=== PATIENT | female | born 1960 | race Caucasian/White ===

== ENCOUNTER 2019-11-07 11:01 | Emergency (ER) | payer SELFPAY ==
[~2019-11-07] VITALS: Ht 152.4 cm; Wt 85.3 kg
--- OUTSIDE RECORDS SUMMARY | 2019-11-07 11:03 | XMS REPORT ---
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 Allergies, Adverse Reactions, Alerts This patient has no known allergies or adverse reactions. Medications This patient has no known medications. Encounters Start Date/Time End Date/Time Encounter Type Admission Type Attending [facility] Care Department Encounter ID 2019-12-03 00:00:00 2019-12-03 00:00:00 Outpatient [facility] [id number] 2019-12-03 00:00:00 2019-12-03 00:00:00 Outpatient [facility] [id number] 2019-11-20 00:00:00 2019-11-20 00:00:00 Outpatient [facility] [id number] 2019-11-09 00:00:00 2019-11-09 00:00:00 Outpatient [facility] [id number] 2019-10-28 09:14:02 2019-10-28 09:14:02 Outpatient [facility] [id number] 2019-10-21 00:00:00 2019-10-21 00:00:00 Outpatient [facility] [id number] 2019-10-14 09:48:27 2019-10-14 09:48:27 Outpatient [facility] [id number] 2019-10-02 08:52:05 2019-10-02 08:52:05 Outpatient [facility] [id number] 2019-09-21 08:24:59 2019-09-21 08:24:59 Outpatient [facility] [id number] 2019-09-16 09:53:15 2019-09-16 09:53:15 Outpatient [facility] [id number] 2019-09-03 09:01:23 2019-09-03 09:01:23 Outpatient [facility] [id number] 2019-08-19 09:10:32 2019-08-19 09:10:32 Outpatient [facility] [id number] 2019-08-19 09:08:28 2019-08-19 09:08:28 Outpatient [facility] [id number] 2019-08-17 11:03:27 2019-08-17 11:03:27 Outpatient [facility] [id number] 2019-08-13 09:32:26 2019-08-13 09:32:26 Outpatient [facility] [id number] 2019-08-13 00:00:00 2019-08-13 00:00:00 Outpatient [facility] [id number] 2019-07-22 10:28:25 2019-07-22 10:28:25 Outpatient [facility] [id number] 2019-07-20 09:09:10 2019-07-20 09:09:10 Outpatient [facility] [id number] 2019-07-14 10:25:44 2019-07-14 10:25:44 Outpatient [facility] [id number] 2019-06-26 09:02:31 2019-06-26 09:02:31 Outpatient [facility] [id number] 2019-06-25 09:27:31 2019-06-25 09:27:31 Outpatient [facility] [id number] 2019-06-25 08:04:00 2019-06-25 08:04:00 Outpatient [facility] [id number] 2019-06-25 00:00:00 2019-06-25 00:00:00 Outpatient [facility] [id number] 2019-06-24 10:08:56 2019-06-24 10:08:56 Outpatient [facility] [id number] 2019-06-19 08:57:44 2019-06-19 08:57:44 Outpatient [facility] [id number] 2019-06-18 00:00:00 2019-06-18 00:00:00 Outpatient [facility] [id number] 2019-06-03 11:08:34 2019-06-03 11:08:34 Outpatient [facility] [id number] 2019-06-03 10:24:05 2019-06-03 10:24:05 Outpatient [facility] [id number] 2019-06-03 00:00:00 2019-06-03 00:00:00 Outpatient [facility] [id number] 2019-05-25 10:38:14 2019-05-25 10:38:14 Outpatient [facility] [id number] 2019-05-25 10:34:01 2019-05-25 10:34:01 Outpatient [facility] [id number] 2019-05-25 00:00:00 2019-05-25 00:00:00 Outpatient [facility] [id number] 2019-05-18 00:00:00 2019-05-18 00:00:00 Outpatient [facility] [id number] 2019-04-23 09:34:13 2019-04-23 09:34:13 Outpatient [facility] [id number] 2019-04-16 16:03:10 2019-04-16 16:03:10 Outpatient [facility] [id number] 2019-04-16 00:00:00 2019-04-16 00:00:00 Outpatient [facility] [id number] 2019-03-27 10:44:22 2019-03-27 10:44:22 Outpatient [facility] [id number] 2019-03-19 08:19:26 2019-03-19 08:19:26 Outpatient [facility] [id number] 2019-03-19 08:17:16 2019-03-19 08:17:16 Outpatient [facility] [id number] 2019-02-27 11:04:09 2019-02-27 11:04:09 Outpatient [facility] [id number] 2019-02-27 10:35:12 2019-02-27 10:35:12 Outpatient [facility] [id number] 2019-02-27 00:00:00 2019-02-27 00:00:00 Outpatient [facility] [id number] 2019-02-23 11:04:22 2019-02-23 11:04:22 Outpatient [facility] [id number] 2019-02-05 02:11:56 2019-02-05 02:11:56 Emergency [facility] [id number] 2019-02-04 22:45:45 2019-02-04 22:45:45 Emergency [facility] [id number] 2019-02-04 11:34:36 2019-02-04 11:34:36 Emergency [facility] [id number] 2019-01-23 10:07:33 2019-01-23 10:07:33 Outpatient [facility] [id number] 2018-12-26 11:18:55 2018-12-26 11:18:55 Outpatient [facility] [id number] 2018-12-26 10:14:55 2018-12-26 10:14:55 Outpatient [facility] [id number] 2018-12-25 00:00:00 2018-12-25 00:00:00 Outpatient [facility] [id number] 2018-12-09 15:26:54 2018-12-09 15:26:54 Outpatient [facility] [id number] 2018-12-01 09:33:58 2018-12-01 09:33:58 Outpatient [facility] [id number] 2018-12-01 00:00:00 2018-12-01 00:00:00 Outpatient [facility] [id number] 2018-11-28 12:45:02 2018-11-28 12:45:02 Outpatient [facility] [id number] 2018-11-27 14:13:49 2018-11-27 14:13:49 Outpatient [facility] [id number] 2018-11-26 14:18:07 2018-11-26 14:18:07 Outpatient [facility] [id number] 2018-11-26 05:45:39 2018-11-26 05:45:39 Outpatient [facility] [id number] 2018-11-26 00:05:19 2018-11-26 00:05:19 Emergency [facility] [id number] 2018-11-25 23:40:04 2018-11-25 23:40:04 Emergency [facility] [id number] 2018-11-13 15:54:36 2018-11-13 15:54:36 Outpatient [facility] [id number] 2018-11-13 14:04:31 2018-11-13 14:04:31 Outpatient [facility] [id number] 2018-11-06 10:35:14 2018-11-06 10:35:14 Outpatient [facility] [id number] 2018-10-21 00:00:00 2018-10-21 00:00:00 Outpatient [facility] [id number] 2018-09-22 09:42:41 2018-09-22 09:42:41 Outpatient [facility] [id number] 2018-09-22 00:00:00 2018-09-22 00:00:00 Outpatient [facility] [id number] 2018-09-12 09:40:54 2018-09-12 09:40:54 Outpatient [facility] [id number] 2018-09-08 09:03:40 2018-09-08 09:03:40 Outpatient [facility] [id number] 2018-09-04 00:00:00 2018-09-04 00:00:00 Outpatient [facility] [id number] 2018-08-28 16:14:13 2018-08-28 16:14:13 Outpatient [facility] [id number] 2018-08-25 11:08:04 2018-08-25 11:08:04 Outpatient [facility] [id number] 2018-08-25 10:55:28 2018-08-25 10:55:28 Outpatient [facility] [id number] 2018-08-21 00:00:00 2018-08-21 00:00:00 Outpatient [facility] [id number] 2018-08-18 10:32:57 2018-08-18 10:32:57 Outpatient [facility] [id number] 2018-08-07 10:43:04 2018-08-07 10:43:04 Outpatient [facility] [id number] 2018-08-07 09:26:06 2018-08-07 09:26:06 Outpatient [facility] [id number] 2018-07-25 15:26:21 2018-07-25 15:26:21 Outpatient [facility] [id number] 2018-07-25 00:00:00 2018-07-25 00:00:00 Outpatient [facility] [id number] 2018-07-22 15:16:06 2018-07-22 15:16:06 Outpatient [facility] [id number] 2018-07-14 10:33:09 2018-07-14 10:33:09 Outpatient [facility] [id number] 2018-06-17 15:03:31 2018-06-17 15:03:31 Outpatient [facility] [id number] 2018-06-12 11:20:41 2018-06-12 11:20:41 Outpatient [facility] [id number] 2018-06-12 10:35:48 2018-06-12 10:35:48 Outpatient [facility] [id number] 2018-06-12 09:53:47 2018-06-12 09:53:47 Outpatient [facility] [id number] 2018-06-03 00:00:00 2018-06-03 00:00:00 Outpatient [facility] [id number] 2018-05-30 00:00:00 2018-05-30 00:00:00 Outpatient [facility] [id number] 2018-05-28 00:00:00 2018-05-28 00:00:00 Outpatient [facility] [id number] 2018-05-27 07:38:09 2018-05-27 07:38:09 Outpatient [facility] [id number] 2018-05-26 15:18:48 2018-05-26 15:18:48 Outpatient [facility] [id number] 2018-05-26 14:46:14 2018-05-26 14:46:14 Outpatient [facility] [id number] 2018-05-26 13:31:24 2018-05-26 13:31:24 Outpatient [facility] [id number] 2018-05-16 10:42:35 2018-05-16 10:42:35 Outpatient [facility] [id number] 2018-05-15 00:00:00 2018-05-15 00:00:00 Outpatient [facility] [id number] 2018-05-01 10:49:11 2018-05-01 10:49:11 Outpatient [facility] [id number] 2018-04-12 21:52:10 2018-04-12 21:52:10 Emergency [facility] [id number] 2018-04-12 20:17:34 2018-04-12 20:17:34 Emergency [facility] [id number] 2018-04-12 17:41:52 2018-04-12 17:41:52 Outpatient [facility] [id number] 2018-04-07 00:00:00 2018-04-07 00:00:00 Outpatient [facility] [id number] 2018-04-01 00:00:00 2018-04-01 00:00:00 Outpatient [facility] [id number] 2018-03-19 00:00:00 2018-03-19 00:00:00 Outpatient [facility] [id number] 2018-02-18 00:00:00 2018-02-18 00:00:00 Outpatient [facility] [id number] 2018-01-21 00:00:00 2018-01-21 00:00:00 Outpatient [facility] [id number] 2017-12-31 00:00:00 2017-12-31 00:00:00 Outpatient [facility] [id number] 2017-12-27 00:00:00 2017-12-27 00:00:00 Outpatient [facility] [id number] 2017-12-24 00:00:00 2017-12-24 00:00:00 Outpatient [facility] [id number] 2017-12-20 00:00:00 2017-12-20 00:00:00 Outpatient [facility] [id number] 2017-12-03 00:00:00 2017-12-03 00:00:00 Outpatient [facility] [id number] 2017-11-25 08:29:51 2017-11-25 08:29:51 Outpatient [facility] [id number] 2017-11-19 16:40:01 2017-11-19 16:40:01 Outpatient [facility] [id number] 2017-11-19 10:12:17 2017-11-19 10:12:17 Outpatient [facility] [id number] 2017-11-13 00:00:00 2017-11-13 00:00:00 Outpatient [facility] [id number] 2017-11-08 00:00:00 2017-11-08 00:00:00 Outpatient [facility] [id number] 2017-10-29 12:59:32 2017-10-29 12:59:32 Outpatient [facility] [id number] 2017-10-28 00:00:00 2017-10-28 00:00:00 Outpatient [facility] [id number] 2017-10-14 14:46:15 2017-10-14 14:46:15 Outpatient [facility] [id number] 2017-10-14 13:44:07 2017-10-14 13:44:07 Outpatient [facility] [id number] 2017-10-09 15:03:54 2017-10-09 15:03:54 Outpatient [facility] [id number] 2017-10-07 11:42:40 2017-10-07 11:42:40 Outpatient [facility] [id number] 2017-10-07 11:01:18 2017-10-07 11:01:18 Outpatient [facility] [id number] 2017-09-23 20:19:24 2017-09-23 20:19:24 Emergency [facility] [id number] 2017-09-23 13:16:38 2017-09-23 13:16:38 Emergency [facility] [id number] 2017-09-23 12:25:07 2017-09-23 12:25:07 Inpatient [facility] [id number] 2017-09-17 12:39:49 2017-09-17 12:39:49 Outpatient [facility] [id number] 2017-09-17 08:59:25 2017-09-17 08:59:25 Outpatient [facility] [id number] 2017-09-03 09:58:02 2017-09-03 09:58:02 Outpatient [facility] [id number] 2017-08-20 08:22:14 2017-08-20 08:22:14 Outpatient [facility] [id number] 2017-08-13 08:37:56 2017-08-13 08:37:56 Outpatient [facility] [id number] 2017-07-26 00:00:00 2017-07-26 00:00:00 Outpatient [facility] [id number] 2017-07-22 12:52:12 2017-07-22 12:52:12 Outpatient [facility] [id number] 2017-06-25 00:00:00 2017-06-25 00:00:00 Outpatient [facility] [id number] 2017-06-24 00:00:00 2017-06-24 00:00:00 Outpatient [facility] [id number] 2017-06-21 00:00:00 2017-06-21 00:00:00 Outpatient [facility] [id number] 2017-06-10 00:00:00 2017-06-10 00:00:00 Outpatient [facility] [id number] 2017-05-29 06:40:00 2017-05-29 06:40:00 Outpatient [facility] [id number] 2017-05-29 00:00:00 2017-05-29 00:00:00 Outpatient [facility] [id number] 2017-05-29 00:00:00 2017-05-29 00:00:00 Outpatient [facility] [id number] 2017-05-27 06:12:00 2017-05-27 06:12:00 Outpatient [facility] [id number] 2017-05-27 00:00:00 2017-05-27 00:00:00 Outpatient [facility] [id number] 2017-05-24 06:25:00 2017-05-24 06:25:00 Outpatient [facility] [id number] 2017-05-24 00:00:00 2017-05-24 00:00:00 Outpatient [facility] [id number] 2017-05-24 00:00:00 2017-05-24 00:00:00 Outpatient [facility] [id number] 2017-05-23 13:50:50 2017-05-23 13:50:50 Outpatient [facility] [id number] 2017-05-23 00:00:00 2017-05-23 00:00:00 Outpatient [facility] [id number] 2017-05-22 06:37:00 2017-05-22 06:37:00 Outpatient [facility] [id number] 2017-05-22 00:00:00 2017-05-22 00:00:00 Outpatient [facility] [id number] 2017-05-22 00:00:00 2017-05-22 00:00:00 Outpatient [facility] [id number] 2017-05-20 14:55:23 2017-05-20 14:55:23 Outpatient [facility] [id number] 2017-05-20 13:07:46 2017-05-20 13:07:46 Outpatient [facility] [id number] 2017-05-20 12:53:54 2017-05-20 12:53:54 Outpatient [facility] [id number] 2017-05-20 07:15:00 2017-05-20 07:15:00 Outpatient [facility] [id number] 2017-05-20 00:00:00 2017-05-20 00:00:00 Outpatient [facility] [id number] 2017-05-20 00:00:00 2017-05-20 00:00:00 Outpatient [facility] [id number] 2017-05-20 00:00:00 2017-05-20 00:00:00 Outpatient [facility] [id number] 2017-05-19 00:00:00 2017-05-19 00:00:00 Outpatient [facility] [id number] 2017-05-15 06:30:00 2017-05-15 06:30:00 Outpatient [facility] [id number] 2017-05-15 00:00:00 2017-05-15 00:00:00 Outpatient [facility] [id number] 2017-05-14 00:00:00 2017-05-14 00:00:00 Outpatient [facility] [id number] 2017-05-13 06:12:00 2017-05-13 06:12:00 Outpatient [facility] [id number] 2017-05-13 00:00:00 2017-05-13 00:00:00 Outpatient [facility] [id number] 2017-05-13 00:00:00 2017-05-13 00:00:00 Outpatient [facility] [id number] 2017-05-10 06:16:00 2017-05-10 06:16:00 Outpatient [facility] [id number] 2017-05-10 00:00:00 2017-05-10 00:00:00 Outpatient [facility] [id number] 2017-05-09 00:00:00 2017-05-09 00:00:00 Outpatient [facility] [id number] 2017-05-08 06:29:00 2017-05-08 06:29:00 Outpatient [facility] [id number] 2017-05-08 00:00:00 2017-05-08 00:00:00 Outpatient [facility] [id number] 2017-05-08 00:00:00 2017-05-08 00:00:00 Outpatient [facility] [id number] 2017-05-08 00:00:00 2017-05-08 00:00:00 Outpatient [facility] [id number] 2017-05-06 06:15:00 2017-05-06 06:15:00 Outpatient [facility] [id number] 2017-05-06 00:00:00 2017-05-06 00:00:00 Outpatient [facility] [id number] 2017-05-06 00:00:00 2017-05-06 00:00:00 Outpatient [facility] [id number] 2017-05-03 06:53:00 2017-05-03 06:53:00 Outpatient [facility] [id number] 2017-05-03 00:00:00 2017-05-03 00:00:00 Outpatient [facility] [id number] 2017-05-03 00:00:00 2017-05-03 00:00:00 Outpatient [facility] [id number] 2017-05-02 00:00:00 2017-05-02 00:00:00 Outpatient [facility] [id number] 2017-05-01 06:26:00 2017-05-01 06:26:00 Outpatient [facility] [id number] 2017-05-01 00:00:00 2017-05-01 00:00:00 Outpatient [facility] [id number] 2017-05-01 00:00:00 2017-05-01 00:00:00 Outpatient [facility] [id number] 2017-04-30 00:00:00 2017-04-30 00:00:00 Outpatient [facility] [id number] 2017-04-29 06:05:00 2017-04-29 06:05:00 Outpatient [facility] [id number] 2017-04-29 00:00:00 2017-04-29 00:00:00 Outpatient [facility] [id number] 2017-04-29 00:00:00 2017-04-29 00:00:00 Outpatient [facility] [id number] 2017-04-29 00:00:00 2017-04-29 00:00:00 Outpatient [facility] [id number] 2017-04-26 14:44:34 2017-04-26 14:44:34 Outpatient [facility] [id number] 2017-04-24 11:38:56 2017-04-24 11:38:56 Outpatient [facility] [id number] 2017-04-24 10:49:43 2017-04-24 10:49:43 Outpatient [facility] [id number] 2017-04-24 09:29:26 2017-04-24 09:29:26 Outpatient [facility] [id number] 2017-04-22 13:21:30 2017-04-22 13:21:30 Outpatient [facility] [id number] 2017-04-22 12:07:02 2017-04-22 12:07:02 Outpatient [facility] [id number] 2017-04-18 11:52:59 2017-04-18 11:52:59 Outpatient [facility] [id number] 2017-04-02 00:00:00 2017-04-02 00:00:00 Outpatient [facility] [id number] 2017-04-02 00:00:00 2017-04-02 00:00:00 Outpatient [facility] [id number] 2017-04-01 00:00:00 2017-04-01 00:00:00 Outpatient [facility] [id number] 2017-04-01 00:00:00 2017-04-01 00:00:00 Outpatient [facility] [id number] 2017-04-01 00:00:00 2017-04-01 00:00:00 Outpatient [facility] [id number] 2017-04-01 00:00:00 2017-04-01 00:00:00 Outpatient [facility] [id number] 2017-03-19 14:24:25 2017-03-19 14:24:25 Outpatient [facility] [id number] 2017-03-18 08:08:17 2017-03-18 08:08:17 Outpatient [facility] [id number] 2017-03-18 08:02:53 2017-03-18 08:02:53 Outpatient [facility] [id number] 2017-01-30 10:36:42 2017-01-30 10:36:42 Outpatient [facility] [id number] 2017-01-30 09:58:38 2017-01-30 09:58:38 Outpatient [facility] [id number] 2017-01-24 00:00:00 2017-01-24 00:00:00 Outpatient [facility] [id number] 2017-01-23 00:00:00 2017-01-23 00:00:00 Outpatient [facility] [id number] 2017-01-23 00:00:00 2017-01-23 00:00:00 Outpatient [facility] [id number] 2017-01-09 09:06:19 2017-01-09 09:06:19 Outpatient [facility] [id number] 2017-01-09 08:27:16 2017-01-09 08:27:16 Outpatient [facility] [id number] 2016-12-26 08:15:55 2016-12-26 08:15:55 Outpatient [facility] [id number] 2016-12-24 08:14:07 2016-12-24 08:14:07 Outpatient [facility] [id number]
[2019-11-07] MEDS ORDERED: ACETAMINOPHEN 325 MG TAB PO ONE (11:30)
[2019-11-07] MEDS ORDERED: CEFTRIAXONE SOD 1 GM VIAL IM ONE (11:30)
[2019-11-07] MEDS ORDERED: ACETAMINOPHEN 325 MG TAB ONE (11:34)
[2019-11-07] MEDS ORDERED: CEFTRIAXONE SOD 1 GM VIAL ONE (11:35)
[2019-11-07] MEDS ORDERED: LIDOCAINE HCL 2% LOCAL 20 ML VIAL ONE (11:35)
== END 2019-11-07 11:46 | disposition home or self-care (01) ==
LOC: FSED 11:01
DX: H65.02 Acute serous otitis media, left ear (principal); J30.1 Allergic rhinitis due to pollen; Z88.0 Allergy status to penicillin; Z88.2 Allergy status to sulfonamides
CPT/HCPCS: 99282; J0696; J2001

== ENCOUNTER 2019-11-14 21:18 | Emergency (ER) | payer SELFPAY ==
[~2019-11-14] VITALS: Ht 152.4 cm; Wt 85.3 kg
[2019-11-14] MEDS ORDERED: CLINDAMYCIN PHOS 600 MG/ 4 ML VIAL IM ONE (21:45)
[2019-11-14] MEDS ORDERED: CIPROFLOXACIN 500 MG TAB PO ONE (21:45)
[2019-11-14] MEDS ORDERED: CIPROFLOXACIN 500 MG TAB ONE (21:56)
[2019-11-14] MEDS ORDERED: CLINDAMYCIN PHOS 600 MG/ 4 ML VIAL ONE (21:56)
[2019-11-14] MEDS ORDERED: IBUPROFEN 600 MG TAB ONE (22:03)
[2019-11-14] MEDS ORDERED: TRAMADOL HCL 50 MG TAB ONE (22:04)
[2019-11-14] MEDS ORDERED: IBUPROFEN 600 MG TAB PO STA (22:56)
[2019-11-14] MEDS ORDERED: TRAMADOL HCL 50 MG TAB PO ONE (23:00)
== END 2019-11-14 22:15 | disposition home or self-care (01) ==
LOC: FSED 21:18
DX: H65.01 Acute serous otitis media, right ear (principal); I10 Essential (primary) hypertension; E11.9 Type 2 diabetes mellitus without complications; E78.5 Hyperlipidemia, unspecified; I51.9 Heart disease, unspecified
CPT/HCPCS: 99283